=== PATIENT | female | born 1975 | race American Indian/Alaskan Native ===

== ENCOUNTER 2021-04-21 14:38 | Outpatient (CLI) | payer BC ==
--- NOTE | 2021-04-21 15:37 | XRay Report ---
CHEST 2 VIEWS INDICATION / CLINICAL INFORMATION: PRE-OP EVALUATION. COMPARISON: None available. FINDINGS: SUPPORT DEVICES: None. HEART / MEDIASTINUM: No significant abnormality. LUNGS / PLEURA: No significant pulmonary or pleural abnormality. No pneumothorax. ADDITIONAL FINDINGS: No significant additional findings. IMPRESSION: 1. No acute findings. Signer Name: Robi Hartman MD Signed: 04/21/2021 3:33 PM Workstation Name: [id number]
== END 2021-04-21 14:39 | disposition home or self-care (01) ==
LOC: XRAY 14:38
PROVIDERS: ATTEND Internal Medicine
DX: Z01.818 Encounter for other preprocedural examination (principal)
CPT/HCPCS: 71046